=== PATIENT | male | born 1975 | race Caucasian/White ===

== ENCOUNTER 2021-12-31 14:37 | Outpatient (CLI) | payer BC, SELFPAY ==
--- NOTE | 2021-12-31 13:30 | DI.RAD_ITS ---
Exam(s) XR SHOULDER RT COMPLETE 2+V EXAM: XR SHOULDER RT COMPLETE 2+V CLINICAL HISTORY: right shoulder pain. TECHNIQUE: 2D digital imaging was performed of the right shoulder. Three images were obtained. AP and axillary views were obtained. COMPARISON: No exams were available for comparison FINDINGS: BONES: No acute fracture is present. No bony destructive lesion is seen. JOINTS: No dislocation present. SOFT TISSUE: Normal. IMPRESSION: Unremarkable radiographs of the right shoulder. DATA REPOSITORY: RADIATION DOSE DELIVERED:
== END 2021-12-31 14:38 | disposition home or self-care (01) ==
LOC: DIORS 14:38
PROVIDERS: PCP Physician Assistant; Referring Provider Physician Assistant; Visit Provider Student in an Organized Health Care Education/Training Program
DX: M25.511 Pain in right shoulder (principal)
CPT/HCPCS: 73030

== ENCOUNTER → 2022-01-17 01:13 | Outpatient (CLI) | payer BC, SELFPAY ==
--- NOTE | 2022-01-17 07:15 | DI.MRI_ITS ---
Exam(s) MR UPPER JOINT RT WO EXAM: MR UPPER JOINT RT WO CLINICAL HISTORY: R SHOULDER PAIN,ADHESIVE CAPSULITIS, M75.01 TECHNIQUE: Multiplanar multisequence MRI of the shoulder was performed. COMPARISON: CR XR SHOULDER RT COMPLETE 2+V from 12/31/2021 FINDINGS: MARROW:There is no evidence of fracture, Hill-Sachs deformity, nor ominous osseous lesions. ROTATOR CUFF MECHANISM: AC JOINT/ACROMIUM: There are no obvious degenerative changes in the AC joint. No prominent pinch min t at this level. The undersurface of the acromion is flat. There is no impingement hook at this lev el.. There is no evidence of os acromiale. Supraspinatus: Minimal increased signal. No high-grade tear. No retraction musculotendinous junctio n. No atrophy. Infraspinatus: Intact. No evidence of tear nor muscle atrophy. Teres Minor: Intact. No evidence of tear nor muscle atrophy. Subscapularis/anterior cuff: Intact. No abnormal signal at the level of the multipennate insertional fibers. No significant tear nor atrophy. BICEPS TENDON: Normally position in the intertubercular groove. No evidence of tear. There is some fluid in the biceps tendon sheath within the intertubercular groove. LABRUM: No labral tear identified. No evidence of paralabral cyst. Mild increased signal is noted i n the inferior glenohumeral ligament region. GLENOHUMERAL JOINT: Minimal amount of increased joint fluid. Single small degenerative subarticular cyst posteriorly in the humeral head. No osteophytes. QUADRILATERAL SPACE: No evidence of mass in the region of the axillary nerve and dorsal circumflex hu meral vessels. Visualized triceps muscle at this level appears unremarkable. IMPRESSION: 1. Mild findings as described above. No evidence of full-thickness rotator cuff tear nor muscle atro phy. 2. Mild amount of fluid noted in the biceps tendon sheath consistent with tenosynovitis. No loose in tra-articular bodies within this tendon sheath nor within the glenohumeral joint space. No evidence of biceps tendon tear nor obvious labral tears. 3. Minimal degenerative changes in the glenohumeral joint. No osteophytes. DATA REPOSITORY:
== END ==
PROVIDERS: PCP Physician Assistant; Visit Provider Student in an Organized Health Care Education/Training Program
DX: M75.01 Adhesive capsulitis of right shoulder (principal)
CPT/HCPCS: 73221

== ENCOUNTER 2022-06-05 06:12 | Day surgery (SDC) | payer BC, SELFPAY ==
[2022-06-05 06:30] VITALS: BP 115/88; PULSE 72; RESP 18; TEMP 36.5; O2SAT 98
--- NOTE | 2022-06-05 06:46 | W.ANESPRE ---
General Info Date of Service Date Performed: 06/05/22 Height: 6 ft 4 in Weight: 119.5 kg Body Mass Index (BMI): 32.1 Surgical Procedure: Operation Date: 06/05/22 07:40 Proposed Procedure Side Surgeon p Shoulder Manipulation w/Anesthesia Right Stewart Burk MD Meds Allergies and Home Medications Allergies Allergy/AdvReac Type Severity Reaction Status Date / Time No Known Allergies Allergy Unverified 06/05/22 06:28 Home Medication Medication Instructions Recorded albuterol sulfate 90 mcg/actuation 2 puff inhalation Q4H PRN PRN #1 03/24/18 aerosol inhaler (ProAir HFA) inh fluticasone propionate 110 1 puff inhalation BID 01/29/22 mcg/actuation HFA aerosol inhaler (Flovent HFA) naproxen 250 mg tablet 250 - 500 mg PO BID PRN #40 tabs 06/05/22 oxycodone 5 mg tablet 5 - 10 mg PO Q4H PRN moderate to 06/05/22 severe pain #9 tabs Current Visit Medications: Current Medications Generic Name Dose Route Start Last Admin Trade Name Freq PRN Reason Stop Dose Admin Ringer's Solution 1,000 mls @ 30 mls/hr 06/05/22 06:00 IV 07/04/22 23:59 INFUSION MARIA E IV Miscellaneous Supplies 1 each 06/05/22 06:00 Iv Access IV 07/04/22 23:59 DIRECTED MARIA E Sodium Chloride 0 ml 06/05/22 06:00 Normal Saline Flush 10 Ml Syr IV 07/04/22 23:59 PRN PRN Sodium Chloride 0 ml 06/05/22 06:00 Normal Saline 10 Ml Vial IJ 07/04/22 23:59 DIRECTED PRN Sterile Water 0 ml 06/05/22 06:00 Water,Injection,Sterile 10 Ml Vial IJ 07/04/22 23:59 DIRECTED PRN PFSH Active Problems Active Problems: Problem Status Onset Code Adhesive capsulitis of right shoulder M75.01 Medical History Medical History History of asthma Surgical History Surgical History History of back surgery hx of back fusion L4-L5 Tobacco Smoking/Tobacco Use Status: Current every day Tobacco Type: smokeless tobacco Alcohol Alcohol Intake: current Alcohol intake frequency: a few times a month Substance Use Substance use: Never Substance use type: does not use Vital Signs and Lab Results Vital Signs Most Recent Vital Signs in EMR: Most Recent Vital Signs Temp Pulse Resp BP Pulse Ox 36.5 C 72 18 115/88 98 06/05/22 06:30 06/05/22 06:30 06/05/22 06:30 06/05/22 06:30 06/05/22 06:30 Lab Results Blood Type / Crossmatch: No Data to Display Complete Blood Count: No Data to Display Complete Metabolic Panel: No Data to Display Liver Function Panel: No Data to Display Coagulation Panel: No Data to Display Cardiac Panel: No Data to Display Arterial Blood Gas: No Data to Display Venous Blood Gas: No Data to Display Pancreas Panel: No Data to Display Thyroid Panel: No Data to Display Infectious Disease: No Data to Display Blood Cultures: No Data to Display Toxicology Panel: No Data to Display Anesthesia Assessment and Plan Anesthesia History Personal History: No History of Anesthesia Complications Family History: No Family History of Anesthesia Complications Exercise Tolerance Exercise Tolerance: Metabolic Equivalents>4 Pertinent Negatives Pertinent Negatives: No Symptoms of GERD, No Major Cardiovascular Symptoms or Complaints and No Major Pulmonary Symptoms or Complaints Cardiac & Pulmonary Exam Cardiac Exam: Normal S1/S2 Heart Sounds Pulmonary Exam: Clear Bilateral Breath Sounds Implantable Cardiac Device Does patient have a Pacemaker or an ICD?: No Airway Exam Known Difficult Airway: No Mallampati Class: 2 Mouth Opening: Normal (> 3cm) Thyromental Distance: Greater than 3 cm Neck Range of Motion: Full ROM Neck Circumference: Normal Teeth Condition: Normal Dentition ASA Classification ASA Score: ASA 2 Emergency Case?: No NPO Status NPO Status: NPO Clears >2 hours, Solids >8 hours Anesthesia Plan Resuscitation Status: Full Code Anesthesia Technique: General Anesthesia Airway Planned: Natural Airway Pain Management: Surgeon and patient request nerve block Monitors Used: Standard Monitors
[2022-06-05] MEDS: Lactated Ringers 1,000 ML 30 ML IV (06:53)
[2022-06-05 07:03] VITALS: BP 125/83; PULSE 66; RESP 18; TEMP 36.4; O2SAT 96
[2022-06-05 07:18] VITALS: BP 131/85; PULSE 72; RESP 18; TEMP 37; O2SAT 94
[2022-06-05 07:20] VITALS: BMI 32.1
--- NOTE | 2022-06-05 07:46 | PDOC.DSDIS_ITS ---
Discharge Plan Disposition Patient Disposition: HOME Condition: Stable Discharge Details Reason For Visit: Right shoulder stiffness Attending Provider: Stewart Burk Primary Care Provider: Jeremy Goncalves Home Meds and New Rx's Prescriptions: New naproxen 250 mg tablet 250 - 500 mg PO BID PRNQty: 40 0RF Rx Instructions: take with a meal oxycodone 5 mg tablet 5 - 10 mg PO Q4H MDD 30 mg PRN (Reason: moderate to severe pain) Qty: 9 0RF Continued fluticasone propionate [Flovent HFA] 110 mcg/actuation HFA aerosol inhaler 1 puff inhalation BID albuterol sulfate [ProAir HFA] 200 PUFF/INH HFA aerosol inhaler 2 puff Inhalation Q4H PRN PRNQty: 1 0RF Discharge Instructions Additional Instructions: Surgery: Right shoulder manipulation under anesthesia Activity: You should gradually increase range of motion motion and use of your s houlder. You may use your shoulder for all regular activities. Please perform daily stretching in all directions. Physical therapy has been arranged to resume tomorrow. Prescriptions: Naproxen 250 mg take 1-2 every 12 hours with a meal as needed for moderate pain Oxycodone 5 mg take 1-2 every 4-6 hours as needed for severe pain You may use [id number] Tylenol (acetaminophen) as needed for mild pain. These pain medications may be taken all at once or in different combinations as needed. Also, recommend Colace (docusate) as a stool softener as surgery and pain medicine cause constipation. You may try [id number] diphenhydramine (Benadryl) 25-50 mg nightly as a sleep aid Dressings: None Follow-up: 10-[address] Burk You may take off the leg compression stockings this evening at home. You may also leave them on a few days longer if you have a history of leg swelling or edema. Let us know right away if you develop any redness, drainage, fevers, chest pain, or trouble breathing. Do not drink alcohol or drive for at least 24 hours after anesthesia. Please call the office during business hours with any questions or concerns. Discharge Orders Discharge Orders: Discharge Order (Routine); Ordered 06/05/22 Ordered By: Stewart Burk DS: Diagnosis Discharge Diagnosis (1) Adhesive capsulitis of right shoulder: Status: Acute
--- NOTE | 2022-06-05 07:52 | ROE_ITS ---
Operative Note Operative Note DATE OF PROCEDURE: 06/05/22 PRE-OP DIAGNOSIS: Right shoulder adhesive capsulitis POST-OP DIAGNOSIS: same PROCEDURE: Right shoulder manipulation under anesthesia, CPT# 98022 SURGEON: Stewart Burk PUZZLE ASSEMBLER: None None ANESTHESIA TYPE: General:No Airway and Primary Nerve Block Refer to Anesthesia Record COMPLICATIONS: None Patient's condition: stable Indications: Please see complete medical record for details. Procedure Description: In the operating room, general anesthesia was induced. The patient was positioned supine on the stretcher. Bony prominences were padded. Preoperative antibiotics were omitted. The correct patient, procedure, and site of procedure were all verified prior to beginning. The shoulder was examined under anesthesia. Range of motion was moderately restricted as known about 45 degrees external rotation, about 120 degrees forward elevation with relatively full abduction and internal rotation. There were no significant mechanical symptoms or instability. Using a short lever arm and careful steady pressure forward elevation, external rotation at the side, external and internal rotation at 90 degrees abduction, and abduction were restored and confirmed to be symmetrical to the contralateral side. Mild releases were achieved going into full forward elevation with more moderate releases after steady repetitive external rotation at the side avoiding any undue pressure or stress on the shoulder. All terminal range of motion endpoints were reinforced numerous times. Post manipulation, range of motion was full without any limitation. There were no significant mechanical symptoms or instability. The patient awoke from anesthesia without complication and was transferred to the recovery room in a stable condition.
[2022-06-05 07:53] VITALS: BP 116/82; PULSE 63; RESP 16; TEMP 36.3; O2SAT 96
--- NOTE | 2022-06-05 08:47 | W.ANESPOSTOP ---
Postoperative Evaluation Date, Time and Location Date Performed: 06/05/22 Time Performed: 08:07 Patient Location: Day Surgery Unit Vital Signs Most Recent Imported Vital Signs: Most Recent Vital Signs Temp Pulse Resp BP Pulse Ox 36.3 C L 63 16 116/82 96 06/05/22 07:53 06/05/22 07:53 06/05/22 07:53 06/05/22 07:53 06/05/22 07:53 Assessment Mental Status: Awake (Alert & Oriented to Patient Baseline) Airway and Respiratory Function: Patent airway with normal (patient baseline) respiratory exam Cardiovascular Function: Hemodynamically Stable Hydration Status: Adequately Hydrated Nausea & Vomiting: No Nausea or Vomiting Pain: Pt. Denies Any Pain Peripheral Nerve Block: Regional nerve block not resolved at time of post operative discharge
--- NOTE | 2022-06-05 10:55 | W.ANESNERVE ---
Nerve Block Single Injection Procedure Date and Time Date Performed: 06/05/22 Procedure Start: 07:15 Location Where Procedure Performed Procedure Location: Day Surgery Unit Reason Performed: Postoperative Analgesia Requesting Provider: Stewart Burk Timeout Performed Timeout Performed: Yes Monitoring Used ECG, Blood Pressure, SpO2 and See EMR for corresponding vital signs Sterility Sterility: Hand Hygiene, Surgical Cap, Surgical Mask, Sterile Gloves and Chlorhexidine Sedation Given During Procedure Sedation Given (Indicate Dose Given): Versed IV Dose:: 2mg Patient Mental Status Patient Mental Status: Awake Nerve Block 1st Nerve Block: Laterality: Right Block Type: Interscalene Needle / Catheter Used: 80mm SonoPlex II Local Anesthetic Bolus (Indicate Dose Given): Lidocaine used for local infiltration of skin, Injected in 3-5ml increments after negative blood aspiration and Bupivacaine 0.5% Dose:: 15 mL Additives (Indicate Dose Given): None Ultrasound: Sterile probe cover and gel used Ultrasound Image Saved?: Yes Nerve Stimulator: Not Used Paresthesia: None Procedure Tolerated: No Complications Procedure Outcome: Successful Performed By: Shelia Moran
== END 2022-06-05 09:05 | disposition home or self-care (01) ==
PROVIDERS: PCP Physician Assistant; Visit Provider Student in an Organized Health Care Education/Training Program
PROC: (CPT 23700; principal; 2022-06-05 07:30)
DX: M75.01 Adhesive capsulitis of right shoulder (principal)
CPT/HCPCS: 23700; 76942; J1100; J1885; J2250; J2405; J2704

== ENCOUNTER 2022-08-29 08:23 | Day surgery (SDC) | payer BC, SELFPAY ==
--- NOTE | 2022-08-28 20:23 | W.PM.DSUDISC ---
Date of service: 08/29/22 Time of Service: 10:50 Discharge Plan Disposition Patient Disposition: Home Discharge Details Reason For Visit: LIPOMA Attending Provider: Jay Jay Lin Primary Care Provider: Jeremy Goncalves Home Meds and New Rx's Prescriptions: New tramadol 50 mg tablet 50 mg PO TID PRN (Reason: pain) Qty: 9 0RF Rx Instructions: Take 1 tablet by mouth up to every 8 hours as needed for severe pain. This medication is addictive, and should be used with caution Continued fluticasone propionate [Flovent HFA] 110 mcg/actuation HFA aerosol inhaler 1 puff inhalation BID albuterol sulfate [ProAir HFA] 200 PUFF/INH HFA aerosol inhaler 2 puff Inhalation Q4H PRN PRNQty: 1 0RF Discharge Instructions Instructions: Lipoma Removal (DC) Additional Instructions: 1. Resume all of your medications. 2. Okay to use tylenol and ibuprofen over the counter as needed. Use tramadol as needed for severe pain. 3. Okay to use heating pads, or cold packs as necessary for your discomfort 4. Leave bandage in place for 24 hours, then remove. 5. Shower with warm soapy water. Pat dry. Use a bandaid if needed to protect your clothing. 6. No soaking or tub baths until I see you in the office. 7. No heavy lifting until I see you in the office. 8.Call the office (or go directly to the emergency room after hours) if you notice any of the following: Develop chills (warm to touch), or if you have a thermometer and your temperature is above 101 Difficulty breathing or difficultly swallowing Persistent vomiting Any bleeding ? exceeding one tablespoon 6. Call your physician if the site where your intravenous was started becomes red, swollen, painful, and warm to touch. Referrals: Jay Jay Lin MD [ [facility] STAFF PHYSICIAN] - (Follow-up 1 to 2 weeks for routine postoperative exam) Activity:: Activity as Tolerated Remove Dressings/Wound Care:: 24 hours Shower/Bathe:: 24 hours Diet:: As Tolerated Discharge Orders Discharge Orders: Discharge Order (Routine); Ordered 08/28/22 Ordered By: Jay Jay Lin DS: Diagnosis Discharge Diagnosis (1) Lipoma of back: Status: Acute Asessment and Plan: Lipoma excision -Leave the bandage in place for 24 hours, then remove and wash with warm soapy water. -To be gentle with motion involving the right shoulder as this will put some stretch on the incision. -Follow-up in my office routine postoperative exam
--- NOTE | 2022-08-28 20:25 | ROE_ITS ---
Date of service: 08/29/22 Time of Service: 10:47 Operative Note Operative Note DATE OF PROCEDURE: 08/29/22 PRE-OP DIAGNOSIS: Right upper back lipoma POST-OP DIAGNOSIS: same PROCEDURE: Excision and primary closure of right upper back lipoma SURGEON: Jay Jay Lin ANESTHESIA TYPE: Local By Surgeon ESTIMATED BLOOD LOSS: 10 PATHOLOGY: none sent Patient was transported to: same day Patient's condition: stable Indications: Cesilia is a 47-year-old male with a slightly mobile rubbery mass over his right scapula. Clinically it seems consistent with a lipoma. Procedure Description: After bring the patient back to the operating room, we assisted him into the left lateral decubitus positioning. Next, I prepped and draped the area of the right shoulder in the usual fashion. Then established a generous field block with 2% lidocaine with epinephrine. Once the patient was comfortable, I made a linear incision over the area of the mass. The incision was approximately 8 cm long. I dissected down through the level of the skin to the subcutaneous fat, where I encountered a glistening looking lipoma. Next, using circumferential dissection, I the lipoma from the surrounding soft tissues. There were some serpiginous areas, mostly along the cephalad aspect that required a little bit of dissection into the adjacent fat. There was a small blood vessel along the caudal aspect of the lipoma that was suture-ligated. Once the mass was entirely mobilized, I off the underlying fascia with sharp dissection. This allowed me to completely separate the mass, it seemed most consistent with a simple lipoma. I then irrigated the surgical site. It appeared hemostatic. I closed the deeper layer with interrupted Vicryl stitc hes, and I approximated the skin with a running subcuticular Monocryl suture I applied bandages, we moved the patient into the same-day surgery recovery unit.
[2022-08-29] MEDS: Celecoxib 200 MG CAP PO (08:41)
[2022-08-29] MEDS: Gabapentin 300 MG CAP 600 MG PO (08:41)
[2022-08-29] MEDS: Acetaminophen 500 MG TAB 1000 MG PO (08:42)
[2022-08-29 08:46] VITALS: BP 121/84; PULSE 86; RESP 16; TEMP 35.9; O2SAT 96
[2022-08-29] MEDS: Lactated Ringers 1,000 ML 80 ML IV (09:06)
[2022-08-29 10:49] VITALS: BP 115/80; PULSE 62; RESP 16; TEMP 36.1; O2SAT 96
== END 2022-08-29 11:26 | disposition home or self-care (01) ==
PROVIDERS: PCP Physician Assistant; Visit Provider Surgery
PROC: (CPT 11406; principal; 2022-08-29 10:15)
DX: D17.1 Benign lipomatous neoplasm of skin and subcutaneous tissue of trunk (principal)
CPT/HCPCS: 11406; 12034

== ENCOUNTER 2022-12-27 09:24 | Emergency (ER) | payer BC, SELFPAY ==
[2022-12-27 09:25] VITALS: BP 131/84; PULSE 75; RESP 20; TEMP 36.6; O2SAT 96
--- NOTE | 2022-12-27 09:46 | ED.GENADUL_ITS ---
Discharge Plan Disposition Patient Disposition: Home Condition: Stable Discharge Details Clinical Impression: Acute asthma exacerbation Primary Care Provider: Jeremy Goncalves ED Provider: Rosanna Vazquez Home Meds and New Rx's Prescriptions: New prednisone 20 mg tablet See Rx Instructions .ROUTE .COMPLEX Qty: 18 0RF Rx Instructions: Take 3 tabs daily for 3 days, then 2 tabs daily for 3 days, then 1 tab daily for 3 days. (DME) nebulizers Misc See Rx Instructions .Route Qty: 1 0RF Rx Instructions: As directed albuterol sulfate 2.5 mg /3 mL (0.083 %) solution for nebulization 2.5 mg IH Q4H PRN (Reason: shortness of breath or wheezing) Qty: 15 0RF Continued fluticasone propionate [Flovent HFA] 110 mcg/actuation HFA aerosol inhaler 1 puff inhalation BID albuterol sulfate [ProAir HFA] 200 PUFF/INH HFA aerosol inhaler 2 puff Inhalation Q4H PRN PRNQty: 1 0RF Discharge Instructions Instructions: Asthma (ED) Additional Instructions: Your symptoms are likely consistent with an asthma exacerbation which can be triggered by weather change, a virus, or possibly allergies. Continue to use your Flovent daily as directed. Continue to use your albuterol inhaler as needed and directed for shortness of breath or wheezing. A prescription for oral steroids has been sent electronically to [facility] in [facility] to start tomorrow ThursdayDecember 28. Prescriptions for albuterol solution and a nebulizer machine have been sent to your [facility] pharmacy in [place]. You have been placed on care management list to arrange for a follow-up appointment with pulmonology for reevaluation of your asthma and for consideration of pulmonary function testing if indicated. Return immediately to the emergency department if you develop any worsening or new concerning symptoms. Referrals: Margareth Seals MD [ [facility] STAFF PHYSICIAN] - Discharge Data Discharge Date/Time-TO BE ENTERED AT DEPARTURE: 12/27/22 10:45 Discharge Physician: Rosanna Vazquez Medical Decision Making 6507 -- 47-year-old male with a history of asthma presents with difficulty breathing since last night. Patient appears comfortable and nontoxic. He has normal heart rate, respiratory rate, oxygen saturation and is afebrile. He is speaking comfortably and in full sentences. Normal ENT exam. He has slightly diminished breath sounds throughout with inspiratory wheezing noted in the right upper lobe. He has no fever, tachycardia, productive cough to suggest pneumonia so we will hold on chest x-ray at this time and he is agreeable. He has no crackles in his lungs or lower extremity swelling to suggest CHF. Suspect asthma exacerbation. Also considered bronchitis. We will give a DuoNeb and a dose of oral steroids. 1020 --patient reassessed and he feels better and feels comfortable going home. A prescription for steroids was sent electronically to his pharmacy. 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 Advised to follow up with the primary care doctor for re-evaluation. Usual and customary return precautions given prior to discharge. Medical Records Medical records reviewed: Yes I reviewed the patient's medical records. HPI General Mode of arrival: ambulatory . Date/Time Provider Initiated Documentation: 12/27/22 09:25 . Limitations to Documentation: no limitations . Information obtained by: patient . HPI Narrative: Patient is a 47-year-old male with a history of asthma presents with shortness of breath since last night. Patient states he can feel and hear wheezing mostly when he lays down. He does endorse that he feels that he has had occasional shortness of breath occurring at night for the last few months but worse since last night. Patient denies any significant cough. He denies any fever, ear pain or sore throat. He states he has been using his albuterol inhaler every 30 to 60 minutes with temporary relief. He states he has a Flovent inhaler he uses twice daily and has been using this as directed. He denies any recent steroids. He states he had a PFT when seen by pulmonology many years ago. Denies any history of intubations. Related Data Home Medications Medication Instructions Recorded Confirmed albuterol sulfate 90 mcg/actuation 2 puff inhalation Q4H PRN PRN #1 03/24/18 12/27/22 aerosol inhaler (ProAir HFA) inh fluticasone propionate 110 1 puff inhalation BID 01/29/22 12/27/22 mcg/actuation HFA aerosol inhaler (Flovent HFA) albuterol sulfate 2.5 mg/3 mL 2.5 mg (3 mL) inhalation Q4H PRN 12/27/22 (0.083 %) solution for nebulization shortness of breath or wheezing #15 mL nebulizers #1 ea 12/27/22 prednisone 20 mg tablet See Rx Instructions .Route 12/27/22 .COMPLEX #18 tabs Previous Rx's Medication Instructions Recorded albuterol sulfate 90 mcg/actuation 2 puff inhalation Q4H PRN PRN #1 03/24/18 aerosol inhaler (ProAir HFA) inh albuterol sulfate 2.5 mg/3 mL 2.5 mg (3 mL) inhalation Q4H PRN 12/27/22 (0.083 %) solution for nebulization shortness of breath or wheezing #15 mL nebulizers #1 ea 12/27/22 prednisone 20 mg tablet See Rx Instructions .Route 12/27/22 .COMPLEX #18 tabs Allergies Allergy/AdvReac Type Severity Reaction Status Date / Time No Known Allergies Allergy Unverified 09/15/22 11:23 General Stated Complaint: RespSymp KUNAL: 3 Review of Systems All systems reviewed & are unremarkable except as noted in HPI and below Constitutional Constitutional: Reports as per HPI, Denies chills and Denies fever(s) Eyes Eyes: Denies blurry vision ENT Ears, Nose, Mouth, and Throat: Denies dizziness, Denies sore throat and Denies throat swelling Cardiovascular Cardiovascular: Denies chest pain and Reports dyspnea Respiratory Respiratory: Denies cough and Reports dyspnea Gastrointestinal Gastrointestinal: Denies abdominal pain, Denies diarrhea and Denies vomiting Genitourinary Genitourinary: Denies hematuria and Denies dysuria Musculoskeletal Musculoskeletal: Denies back pain and Denies numbness Integumentary/Breasts Skin/Breast: Denies lesions and Denies rash Neurologic Neurologic: Denies dizziness, Denies localized weakness and Denies numbness Allergic/Immunologic Allergic/Immunologic: Denies throat swelling PFSH All Active Problems (Updated 12/27/22 @ 10:32 by Rosanna Vazquez DO) Acute asthma exacerbation (Acute) Nicotine dependence (Acute) chews tobacco Lipoma of back (Acute) Medical History History of asthma Oral leukoplakia Surgical History Adhesive capsulitis of right shoulder S/P manipulation under anesthesia: 06/05/2022 History of back surgery hx of back fusion L4-L5 Social History Smoking/Tobacco Use Status: Current every day Tobacco Type: smokeless tobacco Smoking risk assessment performed?: Yes Alcohol Intake: current Alcohol Intake frequency: a few times a month Alcohol type: beer Drug use: Never Substance use type: does not use Current gender identity: male Do you feel safe at home: Yes Do you feel safe in your relationship?: Yes Exam Const General: cooperative, healthy appearing and no acute distress Orientation: alert, awake and oriented x3 HENMT Head: normal to inspection Ears: hearing grossly normal bilaterally, external ears normal and TM's normal bilaterally General nose exam: external nose normal and no nasal discharge Face and sinus: normal facial exam Mouth: oral mucosae normal Throat: posterior oropharynx normal Eyes General: appearance normal, both eyes and all related structures Pupils: PERRL EOM: EOM intact bilaterally Neck Neck: normal visual inspection and No submandibular swelling Lymphatic: no lymphadenopathy noted Chest Chest: normal inspection of the chest and no tenderness Resp Effort & Inspection: normal respiratory effort and able to speak in complete sentences Auscultation: diminished lung sounds bilaterally throughout (minimally) and wheezes scattered wheezes and right upper Cardio Rate: regular rate Rhythm: regular rhythm Male General Exam: Yes normal external exam Back/Spine/Pelvis Thoracic/Lumbar Spine: surgical scar(s) present (midline lumbar spine, well healed) Skin General skin exam: no rashes or lesions noted Neuro General: patient alert, patient awake and patient oriented x3 Cognition: normal cognition Speech: speech normal Motor: muscle tone normal throughout Sensory Exam: no sensory deficits noted Extrem General: normal to inspection, full ROM, no calf tenderness bilaterally and no edema Psych Appearance: grossly normal Mental Status: mental status grossly normal Speech and Movement: speech and movement normal Affect: normal affect Course Vital Signs Vital signs: Vital Signs Temperature 97.9 F 12/27/22 09:25 Pulse 75 12/27/22 09:25 Respiratory Rate 20 12/27/22 09:25 Blood Pressure 131/84 12/27/22 09:25 Pulse Oximetry 96 12/27/22 09:25 Temperature 97.9 F 12/27/22 09:25 Temperature Source Temporal Artery Scan 12/27/22 09:25 Pulse 75 12/27/22 09:25 Respiratory Rate 20 12/27/22 09:25 Respiratory Effort Normal, Non-Labored 12/27/22 09:30 Blood Pressure 131/84 12/27/22 09:25 Blood Pressure Position Sitting 12/27/22 09:25 Pulse Oximetry 96 12/27/22 09:25 Oxygen Delivery Method Room Air 12/27/22 09:25 Oxygen Flow Rate 0 12/27/22 09:25
[2022-12-27] MEDS: predniSONE 20 MG TAB 60 MG PO (10:09)
[2022-12-27 10:10] VITALS: RESP 4
[2022-12-27] MEDS: Albuterol/Ipratropium 3 ML UPD VIAL UPD (10:10)
[2022-12-27 10:27] VITALS: BP 126/87; PULSE 74; RESP 18; O2SAT 97
--- NOTE | 2022-12-27 11:03 | NUR.NOTE ---
Referral made per Dr. Vazquez to Pulmonary in the next few weeks as the patient has a hx of asthma. The patient needs to be seen for a general assessment, asthma exacerbation and a PFT. Put the referral in the care management's box for follow up assistance.Nursing Note:
== END 2022-12-27 10:45 | disposition home or self-care (01) ==
PROVIDERS: Emergency Provider Physician Assistant; PCP Physician Assistant
DX: J45.901 Unspecified asthma with (acute) exacerbation (principal); F17.200 Nicotine dependence, unspecified, uncomplicated; Z79.51 Long term (current) use of inhaled steroids
CPT/HCPCS: 94640; 99283; 99284; J7512; J7620

== ENCOUNTER 2024-11-01 10:43 | Outpatient (REF) | payer BC, SELFPAY ==
[2024-11-01 17:09] LABS: Anion Gap 6.4 mmol/L (3-11); BUN 17 mg/dL (7-18); CO2 29.6 mmol/L (21.0-32.0); CREATININE 1.5 mg/dL (0.70-1.30); Calcium 9.6 mg/dL (8.5-10.1); Calculated LDL 119 mg/dL (<100); Chloride 106 mmol/L (98-107); Cholesterol 195 mg/dL (<200); Estimated GFR 57.43 (mL/min/1.73m2); Glucose 105 mg/dL (74-106); HDL Cholesterol 50 mg/dL (40-60); Sodium 142 mmol/L (136-145); Triglyceride 134 mg/dL (<150)
[2024-11-01 18:02] LABS: Hemoglobin A1C 5.8 % (<5.7)
== END 2024-11-01 10:44 | disposition home or self-care (01) ==
LOC: NCHCN 10:43
PROVIDERS: PCP Physician Assistant; Visit Provider Physician Assistant
DX: E66.9 Obesity, unspecified (principal)
CPT/HCPCS: 80048; 80061; 83036

== ENCOUNTER 2025-03-07 19:16 | Outpatient (REF) | payer BC, SELFPAY ==
[2025-03-07 19:59] LABS: Anion Gap 7.0 mmol/L (3-11); BUN 24 mg/dL (7-18); CO2 30.0 mmol/L (21.0-32.0); Calcium 9.2 mg/dL (8.5-10.1); Chloride 104 mmol/L (98-107); Estimated GFR 57.07 (mL/min/1.73m2); Glucose 104 mg/dL (74-106); Potassium 4.5 mmol/L (3.5-5.1); Sodium 141 mmol/L (136-145)
[2025-03-07 20:20] LABS: Hemoglobin A1C 5.7 % (<5.7)
== END 2025-03-07 19:17 | disposition home or self-care (01) ==
LOC: NCHCN 19:16
PROVIDERS: PCP Physician Assistant; Visit Provider Physician Assistant
DX: R73.03 Prediabetes (principal)
CPT/HCPCS: 80048; 83036

== ENCOUNTER 2025-04-21 08:28 | Day surgery (SDC) | payer BC, SELFPAY ==
--- NOTE | 2025-04-20 18:42 | PDOC.DSDIS_ITS ---
Date of service: 04/21/25 Discharge Plan Disposition Patient Disposition: Home Condition: Good Discharge Details Reason For Visit: screening colonoscopy Attending Provider: Jay Jay Lin Primary Care Provider: Jeremy Goncalves Home Meds and New Rx's Prescriptions: Continued albuterol sulfate [ProAir HFA] 200 PUFF/INH HFA aerosol inhaler 2 puff Inhalation Q4H PRN PRNQty: 1 0RF (DME) nebulizers Misc See Rx Instructions .Route Qty: 1 0RF Rx Instructions: As directed albuterol sulfate 2.5 mg /3 mL (0.083 %) solution for nebulization 2.5 mg IH Q4H PRN (Reason: shortness of breath or wheezing) Qty: 15 0RF Discontinued bisacodyl [Dulcolax (bisacodyl)] 5 mg tablet,delayed release (DR/EC) 5 mg PO ONCE Qty: 4 0RF Rx Instructions: Take per colonoscopy instructions provided by ordering providers office polyethylene glycol 3350 17 gram/dose powder 17 g PO ONCE Qty: 238 0RF Rx Instructions: Take per colonoscopy instructions provided by ordering providers office Discharge Instructions Instructions: Colon polyps, Diverticulosis Additional Instructions: Maurice, it was great seeing you today, and I hope you feel well after the procedure. Things went very smoothly. I did find, and remove 1 very small polyp today. Certainly nothing to worry about. I will send it to the [facility] for them to review since polyps, different kinds, we use that information to help determine future colonoscopy timing. Incidentally, he also have diverticulosis. Diverticula are weak spots in the muscular layer of the colon wall. This causes the inside lining to pocket approach outwards. These can get infected or inflamed. When that happens, patients typically experience quite a bit of pain, usually in the left lower part of their abdomen. Hopefully years will never bother you. I will attach some basic information here about colorectal polyps, as well as diverticulosis. if you need anything at all, please do not hesitate to ask, otherwise we will be in touch once the polyp analysis is complete. 1. If tolerated, consume a soft, low fiber diet for 1-2 days. 2[address] Do not drive, drink alcohol, operate machinery, make critical decisions, or do activities that require coordination or balance for 24 hours. 3. Because air was put into your colon during the procedure, expelling air from your rectum (passing gas or farting) is normal. 4. You may not have a bowel movement for 1-3 days because of the colonoscopy prep. This is normal. 5. Go directly to the emergency room if you notice any of the following: Develop chills (warm to touch), or if you have a thermometer and your temperature is above 101 Difficulty breathing or difficultly swallowing Persistent vomiting Severe abdominal pain, other than gas cramps Severe chest pain Black, tarry stools Any bleeding ? exceeding one tablespoon 6. Call your physician if the site where your intravenous was started becomes red, swollen, painful, and warm to touch. 7. Your physician has reviewed your pre-procedure medications. Please continue to take those medications as previously ordered. You will be given specific information/education regarding any changes to your medications before leaving. Stand Alone Forms: Anesthesia Discharge InstTalon Campuzano (DSU) Activity:: Activity as Tolerated Diet:: As Tolerated Discharge Orders Discharge Orders: Discharge Order (Routine); Ordered 04/20/25 Ordered By: Jay Jay Lin DS: Diagnosis Discharge Diagnosis (1) Encounter for screening colonoscopy: Status: Acute Asessment and Plan: Follow-up on polypectomy results
--- NOTE | 2025-04-20 19:00 | W.COLOREPORT ---
Date of service: 04/21/25 Time of Service: 10:17 Colonoscopy Report Date of procedure: 04/21/25 Pre-op diagnosis general: screening colonoscopy Post-op diagnosis procedure note: other (Colon polyps diverticulosis) Procedure: colonoscopy with polypectomy Surgeon: Jay Jay Lin Anesthesia Type: General:No Airway Estimated blood loss (mL): 5 Pathology: other (0.25 cm flat polyp at 95 cm) Complications: None Disposition: same day Indications: Maurice is a 50 year old man who needs a screening colonoscopy Prep: Miralax/Dulcolax Procedure Start Time: :56 Procedure End Time: :09 Retraction Time: 10 Findings: Diverticulosis, 0.25 cm flat polyp at 95 cm Procedure Description: After the induction of anesthesia, and with the patient in left lateral decubitus position, I began by performing an external anorectal exam.? Perineum and skin were normal, as was the anal verge.? There was no evidence of external hemorrhoids.? Next, I performed a digital rectal exam.? I did not appreciate any abnormal findings.? Next, I advanced a colonoscope into the rectal vault.? I performed retroflexion.? This appeared normal.? Using insufflation, I then advanced the colonoscope beyond the rectal folds and into the sigmoid colon before advancing towards the cecum.? The quality of the prep was excellent.? There is sigmoid diverticulosis. The scope was noted to be in the cecum by identification of the ileocecal valve and appendiceal orifice.? I then began withdrawing the colonoscope using repeated irrigation as necessary for full evaluation of the colonic mucosa. Around 95 cm from the anal verge was a 0.25 cm flat polyp. This was removed with cold forceps with minimal bleeding. ?Once the scope was withdrawn to the level of the rectum, great care was taken to examine portions of the rectal folds.? Finally, the scope was withdrawn and the patient was brought to the same-day surgery recovery unit as the anesthetic wore off. ?The findings and instructions were shared with the patient prior to discharge. [place] Bowel Prep [place] Bowel Prep Right Colon: 3 Left Colon: 3 Transverse Colon: 3 Total Score: 9
[2025-04-21 08:39] VITALS: BP 127/93; PULSE 65; RESP 20; TEMP 36.6; O2SAT 96
[2025-04-21] MEDS: Lactated Ringers 1,000 ML 80 ML IV (08:53)
[2025-04-21 09:24] VITALS: BMI 32.5
--- NOTE | 2025-04-21 09:24 | ANES.PREOP_ITS ---
General Info Date of Service Date Performed: 04/21/25 Height: 6 ft 3 in Weight: 118.1 kg Body Mass Index (BMI): 32.5 Surgical Procedure: Operation Date: 04/21/25 09:50 Proposed Procedure Side Surgeon joseph Lin MD Meds Allergies and Home Medications Allergies Allergy/AdvReac Type Severity Reaction Status Date / Time No Known Allergies Allergy Unverified 04/21/25 08:37 Home Medication ?Medication ?Instructions ?Recorded albuterol sulfate 90 mcg/actuation 2 puff inhalation Q 4H PRN PRN #1 03/24/18 aerosol inhaler (ProAir HFA) inh albuterol sulfate 2.5 mg/3 mL 2.5 mg (3 mL) inhalation Q4H PRN 12/27/22 (0.083 %) solution for nebulization shortness of breat h or wheezing #15 mL nebulizers #1 ea 12/27/22 Current Visit Medications: Current Medications Generic Name Dose Route Start Last Admin Trade Name Freq PRN Reason Stop Dose Admin Ringer's Solution 1,000 mls @ 80 mls/hr 04/21/25 06:00 04/21/25 08:53 IV 04/21/25 23:59 80 mls/hr INFUSION MARIA E Administration IV Miscellaneous Supplies 1 each 04/21/25 06:00 Iv Access IV 04/21/25 23:59 DIRECTED MARIA E Ondansetron HCl 4 mg 04/20/25 19:04 Ondansetron 4 Mg/2 Ml Vial IVP 05/20/25 19:03 Q4H PRN PRN Nausea / Vomiting Sodium Chloride 0 ml 04/21/25 06:00 Normal Saline Flush 10 Ml Syr IV 04/21/25 23:59 PRN PRN Sodium Chloride 0 ml 04/21/25 06:00 Normal Saline 10 Ml Vial IJ 04/21/25 23:59 DIRECTED PRN Sterile Water 0 ml 04/21/25 06:00 Water,Injection,Sterile 10 Ml Vial IJ 04/21/25 23:59 DIRECTED PRN PFSH Active Problems Active Problems: Problem Status Onset Code Encounter for screening colonoscopy Acute Z12.11 Nicotine dependence Acute F17.200 Lipoma of back Acute D17.1 Medical History Medical History History of asthma Oral leukoplakia Medical History Comments:: asthma - used 2 inahlers Flovent and proAir at 0700 08/29/22 chewed tobacco at 05:30/6 am today Surgical History Surgical History Adhesive capsulitis of right shoulder S/P manipulation under anesthesia: 06/05/2022 History of back surgery hx of back fusion L4-L5 Tobacco Smoking/Tobacco Use Status: Current every day Tobacco Type: smokeless tobacco Alcohol Alcohol Intake: current Alcohol intake frequency: a few times a month Alcohol type: beer Substance Use Substance use: Never Substance use type: does not use Vital Signs and Lab Results Vital Signs Most Recent Vital Signs in EMR: Most Recent Vital Signs Temp Pulse Resp BP Pulse Ox 36.6 C 65 20 127/93 H 96 04/21/25 08:39 04/21/25 08:39 04/21/25 08:39 04/21/25 08:39 04/21/25 08:39 Anesthesia Assessment and Plan Anesthesia History Personal History: No History of Anesthesia Complications Family History: No Family History of Anesthesia Complications Exercise Tolerance Exercise Tolerance: Metabolic Equivalents>4 Pertinent Negatives Pertinent Negatives: No Symptoms of GERD Cardiac & Pulmonary Exam Cardiac Exam: Normal S1/S2 Heart Sounds Pulmonary Exam: Clear Bilateral Breath Sounds Implantable Cardiac Device Does patient have a Pacemaker or an ICD?: No Airway Exam Known Difficult Airway: No Mallampati Class: 2 Mouth Opening: Normal (> 3cm) Thyromental Distance: Greater than 3 cm Neck Range of Motion: Full ROM Neck Circumference: Normal Teeth Condition: Normal Dentition ASA Classification ASA Score: ASA 2 Emergency Case?: No NPO Status NPO Status: NPO Clears >2 hours, Solids >8 hours Anesthesia Plan Resuscitation Status: Full Code Anesthesia Technique: General Anesthesia Airway Planned: Natural Airway Monitors Used: Standard Monitors
--- NOTE | 2025-04-21 10:00 | BOWEL_PTH ---
PATIENT: Maurice Kim LOC: [facility] U#:[id number] AGE/SX: 50/M ROOM: RE04/21/[address]: Jay Jay Lin MD : 1975 BED: DIS: 04/21/2025 SPEC #: [id number] RECD: 04/21/25 12:31 STATUS: RONALD REQ #: [id number] LEIDY: 04/21/25 10:[address]: Jay Jay Lin DEPT: Surgical Specimen RECD BY: Brynn Crouch ENTERED: 04/21/25 12:32 SP TYPE: Bowel OTHR DR: Jeremy Goncalves Tissues: 1 - BIOPSY BOWEL Procedures: GROSS AND MICRO LEVEL 4 Comments: [id number]
[2025-04-21 10:16] VITALS: BP 122/80; PULSE 77; RESP 16; TEMP 36.6; O2SAT 95
--- NOTE | 2025-04-21 10:25 | W.ANESPOSTOP ---
Postoperative Evaluation Date, Time and Location Date Performed: 04/21/25 Time Performed: 10:25 Patient Location: Day Surgery Unit Vital Signs Most Recent Imported Vital Signs: Most Recent Vital Signs Temp Pulse Resp BP Pulse Ox 36.6 C 77 16 122/80 95 04/21/25 10:16 04/21/25 10:16 04/21/25 10:16 04/21/25 10:16 04/21/25 10:16 Pain Score Most Recent Pain Score: Most Recent Pain Score Pain Level 0 04/21/25 10:16 Assessment Mental Status: Awake (Alert & Oriented to Patient Baseline) Airway and Respiratory Function: Patent airway with normal (patient baseline) respiratory exam Cardiovascular Function: Hemodynamically Stable Hydration Status: Adequately Hydrated Nausea & Vomiting: No Nausea or Vomiting Pain: Pt. Denies Any Pain Peripheral Nerve Block: Patient did not receive a nerve block
[2025-04-21 10:43] VITALS: BP 113/81; PULSE 69; RESP 16; TEMP 36.4; O2SAT 95
== END 2025-04-21 10:47 | disposition home or self-care (01) ==
LOC: SUR 08:28
PROVIDERS: PCP Physician Assistant; Visit Provider Surgery
PROC: 0DJD8ZZ Inspection of Lower Intestinal Tract, Via Natural or Artificial Opening Endoscopic (ICD-10-PCS; CPT 45378; principal; 2025-04-21 09:45)
DX: Z12.11 Encounter for screening for malignant neoplasm of colon (principal); D12.3 Benign neoplasm of transverse colon; K57.30 Diverticulosis of large intestine without perforation or abscess without bleeding
CPT/HCPCS: 45380; 88305; J2704